=== PATIENT | male | born 1950 | race Caucasian/White ===

== ENCOUNTER 2022-04-06 15:50 | Outpatient (CLI) | payer MEDICARE, BC, SELFPAY | END 2022-04-06 15:51 | disposition home or self-care (01) | LOC: WOUND 15:51 | PROVIDERS: Visit Provider Nurse Practitioner Family | DX: L59.8 Other specified disorders of the skin and subcutaneous tissue related to radiation (principal); L97.812 Non-pressure chronic ulcer of other part of right lower leg with fat layer exposed; E11.9 Type 2 diabetes mellitus without complications | CPT/HCPCS: 11042; G0277 ==

== ENCOUNTER 2022-04-08 13:00 | Outpatient (RCR) | payer MEDICARE, BC, SELFPAY | END 2022-04-08 23:59 | disposition home or self-care (01) | LOC: WOUND 13:00 | PROVIDERS: Visit Provider Nurse Practitioner Family | DX: L59.8 Other specified disorders of the skin and subcutaneous tissue related to radiation (principal); L97.812 Non-pressure chronic ulcer of other part of right lower leg with fat layer exposed; E11.9 Type 2 diabetes mellitus without complications | CPT/HCPCS: 82962; G0277 ==

== ENCOUNTER 2022-04-15 13:29 | Outpatient (CLI) | payer MEDICARE, BC, SELFPAY | END 2022-04-15 13:30 | disposition home or self-care (01) | LOC: WOUND 13:30 | PROVIDERS: Visit Provider Nurse Practitioner Family | DX: L59.8 Other specified disorders of the skin and subcutaneous tissue related to radiation (principal); E11.622 Type 2 diabetes mellitus with other skin ulcer; L97.812 Non-pressure chronic ulcer of other part of right lower leg with fat layer exposed; Z79.84 Long term (current) use of oral hypoglycemic drugs; Z79.899 Other long term (current) drug therapy | CPT/HCPCS: 97597 ==

== ENCOUNTER 2022-04-20 15:22 | Outpatient (CLI) | payer MEDICARE, BC, SELFPAY | END 2022-04-20 15:23 | disposition home or self-care (01) | LOC: WOUND 15:22 | PROVIDERS: Visit Provider Nurse Practitioner Family | DX: E11.622 Type 2 diabetes mellitus with other skin ulcer (principal); L97.812 Non-pressure chronic ulcer of other part of right lower leg with fat layer exposed; Z79.84 Long term (current) use of oral hypoglycemic drugs; Z79.899 Other long term (current) drug therapy | CPT/HCPCS: 82962; 93922; 99212; G0277 ==

== ENCOUNTER 2022-04-22 13:00 | Outpatient (RCR) | payer MEDICARE, BC, SELFPAY | END 2022-05-09 23:59 | disposition home or self-care (01) | LOC: WOUND 13:00 | PROVIDERS: Visit Provider Physician Assistant Surgical | DX: L59.8 Other specified disorders of the skin and subcutaneous tissue related to radiation (principal); E11.622 Type 2 diabetes mellitus with other skin ulcer; L97.812 Non-pressure chronic ulcer of other part of right lower leg with fat layer exposed | CPT/HCPCS: 82962; 93922; 99212; G0277 ==

== ENCOUNTER 2022-04-27 08:40 | Outpatient (CLI) | payer MEDICARE, BC, SELFPAY | END 2022-04-27 08:41 | disposition home or self-care (01) | PROVIDERS: Visit Provider Nurse Practitioner Family | DX: L59.8 Other specified disorders of the skin and subcutaneous tissue related to radiation (principal); L97.812 Non-pressure chronic ulcer of other part of right lower leg with fat layer exposed | CPT/HCPCS: 97597 ==

== ENCOUNTER 2022-05-04 09:06 | Outpatient (CLI) | payer MEDICARE, BC, SELFPAY | END 2022-05-04 09:07 | disposition home or self-care (01) | LOC: WOUND 09:07 | PROVIDERS: Visit Provider Nurse Practitioner Family | DX: L59.8 Other specified disorders of the skin and subcutaneous tissue related to radiation (principal); L97.812 Non-pressure chronic ulcer of other part of right lower leg with fat layer exposed; E11.622 Type 2 diabetes mellitus with other skin ulcer; Z79.84 Long term (current) use of oral hypoglycemic drugs; Z79.899 Other long term (current) drug therapy | CPT/HCPCS: 15271; Q4121 ==

== ENCOUNTER 2022-05-11 09:44 | Outpatient (CLI) | payer MEDICARE, BC, SELFPAY | END 2022-05-11 09:45 | disposition home or self-care (01) | LOC: WOUND 09:45 | PROVIDERS: Visit Provider Nurse Practitioner Family | DX: L59.8 Other specified disorders of the skin and subcutaneous tissue related to radiation (principal); E11.622 Type 2 diabetes mellitus with other skin ulcer; L97.812 Non-pressure chronic ulcer of other part of right lower leg with fat layer exposed; Z79.84 Long term (current) use of oral hypoglycemic drugs; Z79.899 Other long term (current) drug therapy | CPT/HCPCS: 97602; 99212 ==

== ENCOUNTER 2022-05-18 09:45 | Outpatient (CLI) | payer MEDICARE, BC, SELFPAY | END 2022-05-18 09:46 | disposition home or self-care (01) | LOC: WOUND 09:46 | PROVIDERS: Visit Provider Nurse Practitioner Family | DX: L59.8 Other specified disorders of the skin and subcutaneous tissue related to radiation (principal); E11.622 Type 2 diabetes mellitus with other skin ulcer; L97.812 Non-pressure chronic ulcer of other part of right lower leg with fat layer exposed; Z79.84 Long term (current) use of oral hypoglycemic drugs; Z79.899 Other long term (current) drug therapy | CPT/HCPCS: 97597 ==

== ENCOUNTER 2022-05-25 09:51 | Outpatient (CLI) | payer MEDICARE, BC, SELFPAY | END 2022-05-25 09:52 | disposition home or self-care (01) | LOC: WOUND 09:51 | PROVIDERS: Visit Provider Nurse Practitioner Family | DX: L59.8 Other specified disorders of the skin and subcutaneous tissue related to radiation (principal); E11.622 Type 2 diabetes mellitus with other skin ulcer; L97.812 Non-pressure chronic ulcer of other part of right lower leg with fat layer exposed; Z79.84 Long term (current) use of oral hypoglycemic drugs; Z79.899 Other long term (current) drug therapy | CPT/HCPCS: 99212 ==

== ENCOUNTER 2022-06-01 10:06 | Outpatient (CLI) | payer MEDICARE, BC, SELFPAY | END 2022-06-01 10:07 | disposition home or self-care (01) | LOC: WOUND 10:07 | PROVIDERS: Visit Provider Nurse Practitioner Family | DX: L59.8 Other specified disorders of the skin and subcutaneous tissue related to radiation (principal); E11.622 Type 2 diabetes mellitus with other skin ulcer; L97.812 Non-pressure chronic ulcer of other part of right lower leg with fat layer exposed; Z79.84 Long term (current) use of oral hypoglycemic drugs; Z79.899 Other long term (current) drug therapy | CPT/HCPCS: 99212 ==